=== PATIENT | female | born 1985 ===

== ENCOUNTER 2016-08-04 17:38 | Emergency (ER) | payer MEDICAID ==
[~2016-08-04] VITALS: Ht 160 cm; Wt 79.2 kg
[2016-08-04 17:42] VITALS: BP 135/77; PULSE 104; RESP 18; TEMP 98; O2SAT 100
[2016-08-04] MEDS ORDERED: TAPA10TA2 PO (18:05)
[2016-08-04] MEDS ORDERED: PROP20TA3 PO (18:05)
[2016-08-04] MEDS ORDERED: SODIUM CHLOR 0.9% 1000 ML INJ 1,000 ML IV SCH (18:15)
--- NOTE | 2016-08-04 18:28 | PD ---
HPI Chief Complaint: General Weakness Time Seen by Provider: 17:52 Travel History International Travel<30 days: No Contact w/Intl Traveler<30days: No Traveled to known affect area: No History of Present Illness HPI This is a 31-year-old woman who presents to the emergency department complaining that she feels weak, like she is given a pass out, and is been having some chest discomfort. She states she's been feeling this way for about a month or 2. She went to [facility] and was admitted for one week and treated diagnosed with Graves' disease. She was treated with omeprazole, propranolol, and radioactive iodine. She was discharged almost a week ago. She states since discharge she feels like to discharge her on enough medicine, and she's felt worse of recurrence of her weakness type symptoms. She is supposed to follow-up with [facility] in [place] in 2 more weeks. History Past Medical History Narrative Medical Recently diagnosed Graves' disease Influenza Vaccination: Yes LMP: 07/15/16 Social History Alcohol Use: No Tobacco Use: No Allergies-Medications (Allergen,Severity, Reaction): Coded Allergies: No Known Allergies (Unverified , 08/04/16) Reported Meds & Prescriptions Reported Meds & Active Scripts Active Reported Tapazole (Methimazole) 10 Mg Tab 10 Mg PO DAILY Propranolol (Propranolol HCl) 20 Mg Tab 20 Mg PO Q8HR Review of Systems Except as stated in HPI: all other systems reviewed are Neg Physical Exam Narrative GENERAL: Well-appearing 31-year-old woman, no acute distress. SKIN: Warm and dry. NECK: Trachea midline. No JVD. Little bit of tender thyromegaly. CARDIOVASCULAR: Regular rate and rhythm. No murmur appreciated. RESPIRATORY: No accessory muscle use. Clear to auscultation. Breath sounds equal bilaterally. GASTROINTESTINAL: Abdomen soft, non-tender, nondistended. Hepatic and splenic margins not palpable. MUSCULOSKELETAL: No obvious deformities. No edema. NEUROLOGICAL: Awake and alert. No obvious cranial nerve deficits. Motor grossly within normal limits. Normal speech. PSYCHIATRIC: Appropriate mood and affect; insight and judgment normal. Data Data Last Documented VS Vital Signs Date Time Temp Pulse Resp B/P Pulse Ox O2 Delivery O2 Flow Rate FiO2 08/04/16 18:00 18 100 Room Air 08/04/16 17:42 98.0 104 135/77 Orders Complete Blood Count With Diff (08/04/16 18:11) Comprehensive Metabolic Panel (08/04/16 18:11) Chest, Pa & Lat (08/04/16 ) Beta Hcg (Quant/Titer) (08/04/16 18:11) Sodium Chlor 0.9% 1000 Ml Inj (Ns 1000 M (08/04/16 18:15) Labs Laboratory Tests Test 08/04/16 18:20 White Blood Count 6.9 TH/MM3 Red Blood Count 5.12 MIL/MM3 Hemoglobin 13.5 GM/DL Hematocrit 40.4 % Mean Corpuscular Volume 78.8 FL Mean Corpuscular Hemoglobin 26.3 PG Mean Corpuscular Hemoglobin 33.4 % Concent Red Cell Distribution Width 13.1 % Platelet Count 551 TH/MM3 Mean Platelet Volume 8.1 FL Neutrophils (%) (Auto) 53.9 % Lymphocytes (%) (Auto) 31.8 % Monocytes (%) (Auto) 8.8 % Eosinophils (%) (Auto) 1.7 % Basophils (%) (Auto) 3.8 % Neutrophils # (Auto) 3.7 TH/MM3 Lymphocytes # (Auto) 2.2 TH/MM3 Monocytes # (Auto) 0.6 TH/MM3 Eosinophils # (Auto) 0.1 TH/MM3 Basophils # (Auto) 0.3 TH/MM3 CBC Comment AUTO DIFF Differential Comment AUTO DIFF CONFIRMED Platelet Estimate HIGH Platelet Morphology Comment NORMAL Ovalocytes 1+ Sodium Level 141 MEQ/L Potassium Level 4.5 MEQ/L Chloride Level 106 MEQ/L Carbon Dioxide Level 24.5 MEQ/L Anion Gap 11 MEQ/L Blood Urea Nitrogen 10 MG/DL Creatinine 0.60 MG/DL Estimat Glomerular Filtration 115 ML/MIN Rate Random Glucose 116 MG/DL Calcium Level 9.1 MG/DL Total Bilirubin 0.2 MG/DL Aspartate Amino Transf 20 U/L (AST/SGOT) Alanine Aminotransferase 25 U/L (ALT/SGPT) Alkaline Phosphatase 82 U/L Total Protein 7.9 GM/DL Albumin 3.3 GM/DL Human Chorionic Gonadotropin, LESS THAN 1 Quant MIU/ML [facility] Medical Decision Making Medical Screen Exam Complete: Yes Emergency Medical Condition: Yes Interpretation(s) CBC unremarkable. CMP unremarkable HCG negative Chest x-ray negative Differential Diagnosis Thyrotoxicosis, dehydration, tachycardia-induced cardiomyopathy, electrolyte abnormalities, anemia, other Narrative Course Medical decision making INITIAL: Is a 31-year-old woman who presents to the emergency department complaining she showing generally weaker she's can pass out him some chest discomfort. She was recently diagnosed with Graves' disease. She had radioactive ablation with radioactive iodine done 1 week ago. She's on at the [facility]. She looks well. She has a very minimal tachycardia. She has no overt evidence of heart failure or cardiomyopathy. We'll check labs , we'll check chest x-ray. We'll give some IV fluids. I'm not can do check thyroid studies would be difficult to interpret one week after a thyroid ablation. If labs are unremarkable, we will recommend outpatient follow-up as scheduled. Diagnosis Primary Impression: Weakness Additional Instructions: Continue current medications. Follow-up with your primary doctor in the next 2-4 days. Follow-up with your specialist in [place] as scheduled. Return to the emergency department for any new or worsening symptoms. Med/Other Pt SpecificInfo: No Change to Meds Disposition: 01 DISCHARGE HOME Condition: Stable Steve Hamlin MD Aug 04, 2016 18:27
[2016-08-04 18:29] LABS: AUTOMATED NEUTROPHIL # 3.7 TH/MM3 (1.8-7.7); BASOPHIL # 0.3 TH/MM3 (0-0.2); BASOPHIL % 3.8 % (0.0-2.0); EOSINOPHIL # 0.1 TH/MM3 (0-0.4); EOSINOPHIL % 1.7 % (0.0-4.0); HEMATOCRIT 40.4 % (35.0-46.0); LYMPH % 31.8 % (9.0-44.0); LYMPHOCYTE # 2.2 TH/MM3 (1.0-4.8); MEAN CELL VOLUME 78.8 FL (80.0-100.0); MEAN CORPUSCULAR HEMOGLOBIN 26.3 PG (27.0-34.0); MEAN CORPUSCULAR HGB CONC 33.4 % (32.0-36.0); MONO % 8.8 % (0.0-8.0); NEUT % 53.9 % (16.0-70.0); PLATELET COUNT 551 TH/MM3 (150-450); RED BLOOD COUNT 5.12 MIL/MM3 (4.00-5.30); RED CELL DISTRIBUTION WIDTH 13.1 % (11.6-17.2); WHITE BLOOD COUNT 6.9 TH/MM3 (4.0-11.0)
[2016-08-04 18:38] LABS: CHLORIDE 106 MEQ/L (98-107); HEMO FLAGS AUTO DIFF; POTASSIUM 4.5 MEQ/L (3.5-5.1); SODIUM (NA) 141 MEQ/L (136-145)
[2016-08-04 18:41] LABS: ANION GAP 11 MEQ/L (5-15); BICARBONATE 24.5 MEQ/L (21.0-32.0)
[2016-08-04 18:42] LABS: BLOOD UREA NITROGEN 10 MG/DL (7-18)
[2016-08-04 18:44] LABS: ALT (GPT) 25 U/L (10-53); AST (GOT) 20 U/L (15-37)
[2016-08-04 18:45] LABS: GLOMERULAR FILTRATION RATE 115 ML/MIN (>89)
[2016-08-04 18:46] LABS: TOTAL BILIRUBIN ADULT 0.2 MG/DL (0.2-1.0)
[2016-08-04 18:47] LABS: ALKALINE PHOSPHATASE 82 U/L (45-117)
--- NOTE | 2016-08-04 18:48 | RADHPO ---
EXAM DATE/TIME: 08/04/2016 18:30 [place] COMPARISON: No previous studies available for comparison. INDICATIONS : Patient states shortness of breath. MEDICAL HISTORY : None. SURGICAL HISTORY : Tubal ligation. ENCOUNTER: Initial ACUITY: 4 - 6 days PAIN SCORE: 9/10 LOCATION: Bilateral chest FINDINGS: PA and lateral views of the chest demonstrate the lungs to be symmetrically aerated without evidence of mass, infiltrate or effusion. The cardiomediastinal contours are unremarkable. Osseous structure s are intact. CONCLUSION: No evidence of acute cardiopulmonary disease. Davian Rodriguez MD on August 04, 2016 at 18:47 Board Certified Radiologist. This report was verified electronically.
[2016-08-04 18:50] LABS: BETA HCG QUANT LESS THAN 1 MIU/ML (0-5); OVALOCYTES 1+ (NORMAL); PLATELET ESTIMATE SMEAR HIGH (NORMAL); PLATELET MORPHOLOGY NORMAL (NORMAL); SCAN/DIFF AUTO DIFF CONFIRMED
== END 2016-08-04 19:44 | disposition home or self-care (01) ==
LOC: PHED 17:38
DX: R53.1 Weakness (principal); R07.89 Other chest pain; E05.00 Thyrotoxicosis with diffuse goiter without thyrotoxic crisis or storm
CPT/HCPCS: 71020; 80053; 84702; 85025; 96360; 99285; J7030